=== PATIENT | male | born 1975 | race Two or more races ===

== ENCOUNTER 2020-10-10 12:26 | Emergency (ER) | payer SELFPAY ==
[~2020-10-10] VITALS: Ht 182.9 cm; Wt 83.2 kg
[2020-10-10 12:33] VITALS: BP 154/105
[2020-10-10] MEDS ORDERED: KETOROLAC 30 MG/1 ML IM ONE (13:00)
[2020-10-10] MEDS ORDERED: NEOSPORIN OINT. PKT 1 PACKET ONE (13:18)
[2020-10-10] MEDS ORDERED: KETOROLAC 30 MG/1 ML ONE (13:48)
--- NOTE | 2020-10-10 13:50 | NUR ---
pt. refused to have this tech. apply dressing to his foot.
== END 2020-10-10 14:16 | disposition home or self-care (01) ==
LOC: EDBD → ED 13:21
DX: B35.3 Tinea pedis (principal); M79.672 Pain in left foot; M79.671 Pain in right foot
CPT/HCPCS: 96372; 99283; J1885

== ENCOUNTER 2020-10-13 14:55 | Emergency (ER) | payer MEDICAID ==
[~2020-10-13] VITALS: Ht 182.9 cm; Wt 80.6 kg
[2020-10-13 15:00] VITALS: BP 133/98
--- NOTE | 2020-10-13 16:34 | NUR ---
Pt to room from lobby.
[2020-10-13] MEDS ORDERED: FLUCONAZOLE 100 MG TABLET PO ONE (17:00)
[2020-10-13] MEDS ORDERED: CEFAZOLIN 1,000 MG IM ONE (17:00)
[2020-10-13] MEDS ORDERED: NYSTATIN TOPICAL POWDER 15GM TP PRN (17:00)
[2020-10-13] MEDS ORDERED: CEFAZOLIN 1,000 MG ONE (17:05)
[2020-10-13] MEDS ORDERED: FLUCONAZOLE 100 MG TABLET ONE (17:05)
== END 2020-10-13 17:35 | disposition home or self-care (01) ==
LOC: ED 17:10
DX: B35.3 Tinea pedis (principal); R00.0 Tachycardia, unspecified
CPT/HCPCS: 96372; 99283; J0690

== ENCOUNTER 2020-11-04 10:58 | Emergency (ER) | payer MEDICAID ==
[~2020-11-04] VITALS: Ht 182.9 cm; Wt 82.0 kg
[2020-11-04] MEDS ORDERED: HYDROcodone/APAP 5/325 TABLET PO ONE (11:30)
[2020-11-04] MEDS ORDERED: LORazepam 1MG TABLET PO ONE (11:30)
[2020-11-04 11:57] LABS: BASOPHILS % (AUTO) 0 % (0-1); EOSINOPHILS % (AUTO) 4 % (1-7); LYMPHOCYTES % (AUTO) 35 % (22-44); MEAN CORPUSCULAR HEMOGLOBIN 32.3 pg (27.5-34.5); MEAN CORPUSCULAR HGB CONC 34.7 g/dL (33.2-36.2); MEAN PLATELET VOLUME 7.5 fL (7.4-10.4); MONOCYTES % (AUTO) 6 % (2-9); NEUTROPHILS % (AUTO) 55 % (42-75); PLATELET COUNT 412 x10^3/uL (130-400); RED CELL DISTRIBUTION WIDTH 13.7 % (9.4-14.8)
[2020-11-04 11:58] LABS: ALANINE AMINOTRANSFERASE 35 U/L (12-78); ALBUMIN 3.9 g/dL (3.4-5.0); ANION GAP 3 mmol/L (5-15); CALCIUM 9.7 mg/dL (8.5-10.1); CHLORIDE 111 mmol/L (98-107); CREATININE 0.87 mg/dL (0.7-1.3)
[2020-11-04] MEDS ORDERED: morphine SULFATE 10 MG/ML, 1ML IVPush ONE (12:00)
[2020-11-04] MEDS ORDERED: SODIUM CHLORIDE FLUSH 10ML SYR IVF ONE (12:00)
[2020-11-04] MEDS ORDERED: SODIUM CHLORIDE 0.9% 1,000ML IVBOLUS ONE (12:00)
[2020-11-04] MEDS ORDERED: AMPICILLIN/SULBACTAM 3 GM in SODIUM CHLORIDE 0.9% 100 ML IV ONE (12:00)
[2020-11-04] MEDS ORDERED: LORazepam 2 MG/ML, 1ML IVPush ONE (12:00)
[2020-11-04 12:01] LABS: ALKALINE PHOSPHATASE 94 U/L (45-117); BILIRUBIN,TOTAL 0.4 mg/dL (0.2-1.0); TOTAL PROTEIN 7.5 g/dL (6.4-8.2)
[2020-11-04] MEDS ORDERED: MORPHINE SULFATE 4 MG/ML, 1ML ONE (12:01)
[2020-11-04] MEDS ORDERED: LORazepam 2 MG/ML, 1ML ONE (12:02)
--- NOTE | 2020-11-04 12:10 | NUR ---
TASK RN: 44 YR OLD MALE HERE WITH ONGOING C/O "FEET PAIN" PT WITH WOUNDS TO FAVAIN FEET, WORSE ON RIGHT, WEEPING, FLAKING/PEELING SKIN" PT WITH PAIN 08/11. DISCUSSED WITH ALEX WEST, RE: BLOOD CULTURES. "NOT NEEDED. IV FLUIDS UP. PT MEDICATED FOR PAIN.
[2020-11-04 12:14] VITALS: BP 144/101
[2020-11-04 12:18] LABS: MD NO
--- NOTE | 2020-11-04 12:18 | NUR ---
PT WITH PAIN DECREASED TO 5/10. PT CALMER, DECREASED RAPID SPEECH. SR PER MONITOR. REPORT TO BEVERLY.
--- NOTE | 2020-11-04 12:35 | NUR ---
ALL RESULTS ARE BACK AT THIS TIME. CHART UP FOR RECHECK.
--- NOTE | 2020-11-04 12:37 | NUR ---
MD AT BEDSIDE TO UPDATE PT ON POC.
== END 2020-11-04 13:10 | disposition home or self-care (01) ==
LOC: ED 12:01
DX: B35.3 Tinea pedis (principal); L03.116 Cellulitis of left lower limb; L03.115 Cellulitis of right lower limb
CPT/HCPCS: 36415; 80053; 85025; 87070; 87077; 87205; 96365; 96375; 99284; J0295; J2060; J2270; J7030; 87186

== ENCOUNTER 2020-11-17 21:59 | Emergency (ER) | payer MEDICAID ==
[~2020-11-17] VITALS: Ht 182.9 cm; Wt 78.0 kg
--- NOTE | 2020-11-17 22:17 | NUR ---
PT BIB by [facility], c/o headache and bilateral foot pain. pt treated enroute with 4 mg zofran PO for nausea, 500mg tylenol, and 600mg motrin. pt wrapped his feet in diapers prior to ems picking him up. redness noted and swelling and blanches when touched. positive pulses.
--- NOTE | 2020-11-17 22:20 | NUR ---
PA to bedside to birdie pt. pt is crying and begging the PA to not let him leave and to prescribe him some "cream" that worked on his feet last time. Per the pt, he was seen here in [facility] ER recently, but left AMA because he states the nurses "forgot about him", he then went to [facility] ER and said it was "a zoo" over there, and left AMA as well. He states that he has come in today again for the same problem and begs the staff to not let him leave and that he stay to get treatment and prescriptions as needed. pt cooperative, in bed, siderails up x2, and call light within reach.
[2020-11-17] MEDS ORDERED: KETOROLAC 30 MG/1 ML IM ONE (23:00)
[2020-11-17] MEDS ORDERED: CLOTRIMAZOLE CRM 1%, 15GM TP SCH (23:00)
[2020-11-17] MEDS ORDERED: KETOROLAC 30 MG/1 ML ONE (23:14)
[2020-11-17 23:25] VITALS: BP 124/91
--- NOTE | 2020-11-17 23:29 | NUR ---
PT EDUCATED ON DC PAPERWORK AND MEDICATIONS INCLUDING CREAM AND ABX AND FINISHING COURSE. PT GIVEN SOCKS AND TAXI VOUCHER.
== END 2020-11-17 23:40 | disposition home or self-care (01) ==
LOC: ED 22:34
DX: L03.113 Cellulitis of right upper limb (principal); L03.116 Cellulitis of left lower limb; L03.115 Cellulitis of right lower limb; L03.114 Cellulitis of left upper limb; Z72.9 Problem related to lifestyle, unspecified; F17.210 Nicotine dependence, cigarettes, uncomplicated; B35.4 Tinea corporis; B35.6 Tinea cruris
CPT/HCPCS: 96372; 99283; 99406; J1885

== ENCOUNTER 2020-12-11 21:21 | Emergency (ER) | payer MEDICAID ==
[~2020-12-11] VITALS: Ht 182.9 cm; Wt 81.9 kg
[2020-12-11 23:09] VITALS: BP 166/90
--- NOTE | 2020-12-11 23:10 | NUR ---
Pt dc'd with written and verbal instructions. Rx reviewed with patient. Pt instructed to f/u with podiatry and referrel given. Pt states understanding. Pt ambulatory out of ed without difficulty
== END 2020-12-11 23:12 | disposition home or self-care (01) ==
LOC: ED 22:30
DX: L03.115 Cellulitis of right lower limb (principal); L03.116 Cellulitis of left lower limb; B35.3 Tinea pedis; R26.2 Difficulty in walking, not elsewhere classified; F17.200 Nicotine dependence, unspecified, uncomplicated
CPT/HCPCS: 99283

== ENCOUNTER 2020-12-31 20:04 | Emergency (ER) | payer MEDICAID ==
[~2020-12-31] VITALS: Ht 182.9 cm; Wt 84.1 kg
[2020-12-31 20:08] VITALS: BP 150/99
--- NOTE | 2020-12-31 20:36 | NUR ---
PT SOAKING FEET IN CLEANING SOLUTION AND WARM WATER. PT TOLERATING WELL
== END 2020-12-31 21:46 | disposition home or self-care (01) ==
LOC: ED 21:45
DX: B35.3 Tinea pedis (principal)
CPT/HCPCS: 99283

== ENCOUNTER 2021-01-21 12:52 | Emergency (ER) | payer MEDICAID ==
[~2021-01-21] VITALS: Ht 182.9 cm; Wt 81.8 kg
--- NOTE | 2021-01-21 13:48 | NUR ---
GAVE REPORT TO ARANZA CALVILLO
[2021-01-21] MEDS ORDERED: KETOROLAC 30 MG/1 ML IM ONE (14:00)
[2021-01-21] MEDS ORDERED: KETOROLAC 30 MG/1 ML ONE (14:07)
[2021-01-21 14:12] LABS: BASOPHILS % (AUTO) 1 % (0-1); EOSINOPHILS % (AUTO) 2 % (1-7); LYMPHOCYTES % (AUTO) 16 % (22-44); MEAN CORPUSCULAR HEMOGLOBIN 31.6 pg (27.5-34.5); MEAN CORPUSCULAR HGB CONC 33.8 g/dL (33.2-36.2); MEAN PLATELET VOLUME 7.8 fL (7.4-10.4); MONOCYTES % (AUTO) 8 % (2-9); NEUTROPHILS % (AUTO) 73 % (42-75); PLATELET COUNT 346 x10^3/uL (130-400); RED CELL DISTRIBUTION WIDTH 14.2 % (9.4-14.8)
[2021-01-21 14:13] LABS: MD NO
[2021-01-21 14:21] LABS: ALBUMIN 3.8 g/dL (3.4-5.0); ANION GAP 5 mmol/L (5-15); CHLORIDE 111 mmol/L (98-107); CREATININE 0.86 mg/dL (0.7-1.3)
--- NOTE | 2021-01-21 14:42 | NUR ---
Betadine warm water soak started bilat feet
[2021-01-21 15:23] VITALS: BP 154/74
== END 2021-01-21 15:26 | disposition home or self-care (01) ==
LOC: ED 15:20
DX: B35.3 Tinea pedis (principal); F17.210 Nicotine dependence, cigarettes, uncomplicated
CPT/HCPCS: 36415; 73630; 80048; 82040; 85025; 96372; 99284; J1885

== ENCOUNTER 2021-02-11 21:34 | Emergency (ER) | payer MEDICAID ==
[~2021-02-11] VITALS: Ht 182.9 cm; Wt 83.1 kg
[2021-02-11 21:36] VITALS: BP 162/93
== END 2021-02-11 23:10 | disposition left against medical advice (07) ==
LOC: ED 21:45
DX: B35.3 Tinea pedis (principal); L03.116 Cellulitis of left lower limb; Z91.19 Patient's noncompliance with other medical treatment and regimen
CPT/HCPCS: 99281

== ENCOUNTER 2021-02-13 13:44 | Emergency (ER) | payer MEDICAID ==
[~2021-02-13] VITALS: Ht 182.9 cm; Wt 85.0 kg
--- NOTE | 2021-02-13 15:15 | NUR ---
TASK RN: PT YELLING AND HIGHLY IRRITABLE STATING "I NEED MORPHINE, THAT'S WHAT THEY ALWAYS GIVE ME. I NEED IT RIGHT NOW, CHECK MY CHART."
[2021-02-13 15:18] VITALS: BP 126/97
--- NOTE | 2021-02-13 15:24 | NUR ---
KENNEY COSME EXAMINED PT, PT REQUESTING MEDICINE, "NOT LOTION" - PT CALLING ALL STAFF "FUCKING GORILLAS" THEN STORMED OUT OF DEPARTMENT. GAIT STEADY.
== END 2021-02-13 15:28 | disposition left against medical advice (07) ==
LOC: ED 14:31
DX: L03.119 Cellulitis of unspecified part of limb (principal); R94.31 Abnormal electrocardiogram [ECG] [EKG]
CPT/HCPCS: 93005; 99283

== ENCOUNTER 2021-02-18 21:56 | Emergency (ER) | payer MEDICAID ==
[~2021-02-18] VITALS: Ht 182.9 cm; Wt 78.0 kg
--- NOTE | 2021-02-18 22:14 | NUR ---
LOSE OF FEELING IN HANDS AND FEET. SORES ON HANDS AND FEET. PT STATES BEEN GOING ON FOR 6 MONTHS. PT APPEARS VERY ANXIOUS IN TRIAGE. STATES CAN HARDLY WALK HAD TO BE WHEELCHAIRED IN. FEET ARE CONSTANLY THROBING.
[2021-02-18 22:34] VITALS: BP 138/108
--- NOTE | 2021-02-18 23:07 | NUR ---
ROBIN ADAMS. PROVIDER NOTIFIED.
== END 2021-02-18 23:30 | disposition left against medical advice (07) ==
LOC: ED 22:05
DX: L24.9 Irritant contact dermatitis, unspecified cause (principal); B35.2 Tinea manuum
CPT/HCPCS: 99283